=== PATIENT | male | born 1950 | race Caucasian/White ===

== ENCOUNTER 2017-04-05 13:46 | Inpatient (IN) | payer OTHER ==
[~2017-04-05] VITALS: Ht 180.3 cm; Wt 118.4 kg
[~2017-04-05 13:46] MED LIST: BACTRIM DS1 TAB PO; DIOVAN320 MG PO; GOOD SENSE ASPI81 M3 PO; HYDROCHLOROTH12.5 M2 PO; LAC PO; LANSOPRAZOLE30 M2 PO; LEV500PM IV; LEVOFLOXACIN500 M1 PO; MOTRIN800 MG PO; OXYBUTYNIN CHLOR5 MG PO; PRAVASTATIN40 M1 PO; ZYLOPRIM300 MG PO
--- NOTE | 2017-04-05 14:21 | NUR ---
AWAKE ALERT ORIENTED,PER PT HAD A SHORT AMNESIA ,FORGEOT AND DISORIENTED FOR AROUND ONE AND HALF HOUR,WAS ASKING ABOUT HIS MOTHER WHO LONG TIME, NOW LEODAN CAME BACK, WALKING STEADY,PUPILS PEERL, H/O BLADDER CANCE ,TUMOR REMOVED LAST YEAR
--- NOTE | 2017-04-05 14:24 | NUR ---
IV ESTABLISHED, TO CT SCAN
[2017-04-05 14:59] LABS: PLATELET COUNT 162 x10^3mcL (130-400); RED CELL DISTRIBUTION WIDTH 13.9 % (11.5-14.5)
[2017-04-05 15:09] LABS: CARBON DIOXIDE 31.3 mmol/L (21-32); CHLORIDE SERUM 101 mmol/L (98-107); CREATININE SERUM 1.2 mg/dL (0.7-1.3); GFR1 > 60 mL/min; GLUCOSE SERUM 106 mg/dL (74-106); POTASSIUM SERUM 4.2 mmol/L (3.5-5.1); SODIUM SERUM 138 mmol/L (136-145)
[2017-04-05 15:14] LABS: ALBUMIN 3.8 g/dL (3.4-5.0); ALKALINE PHOSPHATASE 65 U/L (46-116); ALT/SGPT 33 U/L (16-63); AST/SGOT 23 U/L (15-37); BILIRUBIN TOTAL 0.5 mg/dL (0.20-1.00); TOTAL PROTEIN, SERUM 7.5 g/dL (6.4-8.2)
[2017-04-05] MEDS ORDERED: HYDRALAZINE HCL25 MG PO (15:28)
[2017-04-05] MEDS ORDERED: MOT600 PO (15:28)
[2017-04-05] MEDS ORDERED: PRA40 PO (15:29)
--- NOTE | 2017-04-05 15:30 | NUR ---
RESTING IN BED, AWAKE ALERT ORIENTED X4, NO COMPLAINTS,
[2017-04-05 15:42] LABS: CK-MB 1.4 ng/mL (0-3.6)
[2017-04-05 16:16] LABS: AMPHETAMINE QUAL UR NONE DETECTED (NEG <=1000)
--- NOTE | 2017-04-05 16:45 | NUR ---
ADMITTED TO [facility], AWAKE ALERT ORIENTED, RESP. EASY TRANSMISSION SUPERVISOR IN SR,
--- NOTE | 2017-04-05 17:10 | NUR ---
RECEIVED PT FROM ED VIA [facility], CAME IN DUE TO DIFFICULTY RECALLING FOR 2 HOURS. PT STATED THAT HE IS SUPPOSED TO HAVE MRI BRAIN TOMORROW DUE TO HAVING INTERMITTENT EPISODES OF HAVING MEMORY PROBLEMS. PT IS AAOX4. C/O LIGHTHEADEDNESS. PT DENIES DIFFICULTY RECALLING AT THIS TIME. NO SOB NOTED. W/ PRODUCTIVE COUGH, EXPECTORATES CLEAR PHLEGM. DENIES CHEST PAIN/PRESSURE. DENIES ABDOMINAL DISCOMFORT. BOWEL SOUNDS ACTIVE. IV SITE PATENT AND INTACT. AT BEDSIDE. ENDORSED TO PRIMARY NURSE ROYCE FOR CONTINUITY OF CARE.
[2017-04-05 17:12] VITALS: BP 151/81
[2017-04-05 17:18] VITALS: BP 151/81
[2017-04-05 17:23] VITALS: Ht 180.3 cm; Wt 118.4 kg
--- NOTE | 2017-04-05 18:35 | NUR ---
ADMISSION ASSESMENT COMPLETED BY [facility]. PT IN NO DISTRESS. AWAKE AND ALERT. NO C/O PAIN OR DISCOMFORT AT THIS TIME. FAMILY AT BEDSIDE. CALL LIGHT WITHIN REACH. WILL BE ENDORSED TO INCOMING SHIFT.
--- NOTE | 2017-04-05 19:37 | NUR ---
RECEIVED PT FROM PREVIOUS SHIFT. AAOX4. TELE #[id number]. HR 73. DENIES CP/PRESSURE AT THIS TIME. PULSES STRONG BILAT. NO EDEMA NOTED. LUNG SOUNDS CTA BILAT. DENIES SOB ON RA. BOWEL SOUNDS ACTIVE X4. C/O LIGHTHEADNESS BUT AMBULATORY. SKIN CDI. IV TO LAC PATENT AND INTACT. BED IN LOWEST POSITION. CALL LIGHT WITHIN REACH. WILL CONTINUE TO MONITOR. PT JUST LEFT BEDSIDE.
[2017-04-05 20:07] LABS: UA SPECIFIC GRAVITY 1.015 (1.005-1.035); microscopic required? YES; urine erythrocyte NEGATIVE (NEGATIVE)
[2017-04-05 20:36] LABS: T3 TOTAL 1.15 ng/mL
[2017-04-05 21:45] LABS: MAGNESIUM 1.9 mg/dL (1.8-2.4); PHOSPHOROUS 3.2 mg/dL (2.5-4.9)
[2017-04-05 21:46] LABS: CHOLESTEROL/HDL RATIO 2.8
[2017-04-05 21:55] LABS: FREE T4 0.9 ng/dL (0.76-1.46); FREE THYROXINE INDEX 2.8 ug/dL (1.4-4.5); T4(THYROXINE) 7.7 ug/dL (4.7-13.3)
[2017-04-05 22:07] VITALS: BP 105/62
--- NOTE | 2017-04-05 22:57 | NUR ---
PT RESTING PEACEFULLY IN BED. SPEECH CLEAR. NO FACIAL DROOP. CONSULTING UTILITY FORESTER EVEN BILAT. WILL CONTINUE TO MONITOR
--- NOTE | 2017-04-06 01:28 | NUR ---
PT AWAKE RESTING IN BED. RESPIRATIONS EVEN AND UNLABORED. NO ACUTE DISTRESS NOTED. NO FACE DROOP. SPEECH CLEAR AND APPROPRIATE FOR SITUATION. HAND SEMICONDUCTOR TECHNICIAN EVEN BILAT. NO COMPLAINTS OF PAIN AT THIS TIME. IV TO LAC PATENT AND INTACT. INFUSING WELL. BED IN LOWEST POSITION. CALL LIGHT WITHIN REACH. WILL CONTINUE TO MONITOR
[2017-04-06 06:00] LABS: BASOPHIL % 0.8 % (0-2); PLATELET COUNT 141 x10^3mcL (130-400); RED CELL DISTRIBUTION WIDTH 14.4 % (11.5-14.5)
[2017-04-06 06:20] LABS: CALCIUM 8.7 mg/dL (8.5-10.1); CHLORIDE SERUM 101 mmol/L (98-107); CREATININE SERUM 1.2 mg/dL (0.7-1.3); GFR1 > 60 mL/min; GLUCOSE SERUM 117 mg/dL (74-106); POTASSIUM SERUM 4.3 mmol/L (3.5-5.1); SODIUM SERUM 140 mmol/L (136-145)
--- NOTE | 2017-04-06 06:42 | NUR ---
PT RESTING PEACEFULLY IN BED. RESPIRATIONS EVEN AND UNLABORED. NO ACUTE DISTRESS NOTED. NO FACIAL DROOP. SPEECH CLEAR APPROPRIATE FOR SITUATION. IV TO LAC PATENT AND INTACT. BED IN LOWEST POSITION. CALL LIGHT WITHIN REACH. WILL ENDORSE CARE TO ONCOMING SHIFT NURSE
--- NOTE | 2017-04-06 07:45 | NUR ---
RECEIVED AWAKE, ALERT AND ORIENTED. NO RESP. DISTRESS NOTED. NO C/O PAIN OR DISCOMFORT. IVF INFUSING WELL AND SITE CLEAR. CALL LIGHT WITHIN REACH. WILL CONTINUE W/PLAN OF CARE.
--- NOTE | 2017-04-06 09:00 | NUR ---
AM ROUNDS DONE BY DR. MOREL AND MEDICAL TEAM, PLAN TO DC HOME THIS AM. PT AGREED WITH PLAN
[2017-04-06 09:40] VITALS: BP 105/62
--- NOTE | 2017-04-06 09:59 | NUR ---
PT DC'D HOME IN NO DISTRESS. AWAKE, ALERT AND ORIENTED. NO S/S OF NEURO DEFICIT NOTED. NO C/O DIZZINESS OR LIGHTHEADED. VS STABLE. HL REMOVED AND SITE CLEAR. DC INSTRUCTIONS REVIEWED WITH PT AND FAMILY. NO C/O PAIN OR DISCOMFORT AT THE TIME OF DC. PERSONAL BELONGINGS [facility].
[2017-04-06 11:14] VITALS: BP 112/65
== END 2017-04-06 10:00 | disposition home or self-care (01) | DRG 947 ==
LOC: ED 13:46 → DU 15:29
PROVIDERS: Emergency Medicine; ADMIT Family Medicine
DX: R41.3 Other amnesia (principal); N17.0 Acute kidney failure with tubular necrosis; T46.6X5A Adverse effect of antihyperlipidemic and antiarteriosclerotic drugs, initial encounter; M10.9 Gout, unspecified; K21.9 Gastro-esophageal reflux disease without esophagitis; I10 Essential (primary) hypertension; E78.5 Hyperlipidemia, unspecified; Z68.36 Body mass index [BMI] 36.0-36.9, adult; Z87.891 Personal history of nicotine dependence; Z85.51 Personal history of malignant neoplasm of bladder; Y92.018 Other place in single-family (private) house as the place of occurrence of the external cause
CPT/HCPCS: 36600; 83880; 84439; G0480; J7030; Q0092